=== PATIENT | female | born 1990 | race Caucasian/White ===

== ENCOUNTER 2018-05-06 22:19 | Emergency (ER) | payer SELFPAY ==
--- NOTE | 2018-05-06 23:34 | C.PDOC ---
History Of Present Illness Patient comes in complaining of left sided back pain since earlier today. She states the pain is worse with movement and denies any trauma or injury to the area. She also denies any weakness, numbness, dysuria, or hematuria. Patient denies any oral contraceptive use or being sexually active. Time Seen by Provider: 05/06/18 23:34 Chief Complaint (Nursing): Back Pain History Per: Patient History/Exam Limitations: no limitations Onset/Duration Of Symptoms: Hrs Current Symptoms Are (Timing): Still Present Quality Of Discomfort: "Pain" Severity: Mild Pain Scale Rating Of: 3 Associated Symptoms: denies: Incontinence, New Weakness, New Numbness Exacerbating Factor(s): Movement Recent travel outside of the [place]: No Additional History Per: Patient Past Medical History Reviewed: Historical Data, Nursing Documentation, Vital Signs Vital Signs: Last Vital Signs Temp 98.2 F 05/06/18 22:40 Pulse 70 05/06/18 22:40 Resp 20 05/06/18 22:40 BP 142/93 H 05/06/18 22:40 Pulse Ox 98 05/06/18 23:52 - Medical History PMH: No Chronic Diseases Surgical History: No Surg Hx Family History: States: No Known Family Hx - Social History Hx Alcohol Use: No Hx Substance Use: No Review Of Systems Constitutional: Negative for: Fever, Chills Cardiovascular: Negative for: Chest Pain Respiratory: Negative for: Shortness of Breath Genitourinary: Negative for: Dysuria, Hematuria Musculoskeletal: Positive for: Back Pain Neurological: Negative for: Weakness, Numbness Physical Exam - Physical Exam Appears: Non-toxic Skin: Warm, Dry Oral Mucosa: Moist Neck: Supple Chest: Symmetrical Cardiovascular: Rhythm Regular Respiratory: No Rales, No Rhonchi, No Wheezing Gastrointestinal/Abdominal: Soft, No Tenderness, No Distention, No Guarding, No Rebound Back: CVA Tenderness (left), No Vertebral Tenderness, No Straight Leg Raising Extremity: Normal ROM Neurological/Psych: Oriented x3 Gait: Steady ED Course And Treatment O2 Sat by Pulse Oximetry: 98 (RA) Pulse Ox Interpretation: Normal Progress Note: Urinalysis and urine HCG ordered. Disposition Counseled Patient/Family Regarding: Studies Performed, Diagnosis, Need For Followup - Disposition Referrals: [facility] [Outside] [facility] [Outside] Disposition: HOME/ ROUTINE Disposition Time: 23:34 Condition: FAIR Additional Instructions: Please return if symptoms recur Prescriptions: Naproxen [Naprosyn] 1 tab PO BID PRN #25 tab PRN Reason: Pain Nitrofurantoin Macrocrystals [Macrobid] 1 cap PO BID #14 cap Instructions: Urinary Tract Infection, Adult (DC) Forms: [employer] ([place]) - Clinical Impression Clinical Impression: Low back strain, UTI (urinary tract infection) - Scribe Statement The provider has reviewed the documentation as recorded by the Paul Curiel Provider Attestation: All medical record entries made by the Paul were at my direction and personally dictated by me. I have reviewed the chart and agree that the record accurately reflects my personal performance of the history, physical exam, medical decision making, and the department course for this patient. I have also personally directed, reviewed, and agree with the discharge instructions and disposition.
[2018-05-07 00:12] LABS: HCG,QUALITATIVE URINE NEGATIVE (NEGATIVE)
[2018-05-07 00:24] LABS: SQUAMOUS EPITHIAL 1 /hpf (0-5); URINE BACTERIA FEW (<OCC); URINE BILIRUBIN NEGATIVE (NEGATIVE); URINE BLOOD 1+ (NEGATIVE); URINE CLARITY Clear (Clear); URINE COLOR Straw (YELLOW); URINE GLUCOSE (UA) NORMAL (Normal); URINE PROTEIN NEGATIVE (NEGATIVE); URINE UROBILINOGEN NORMAL mg/dL (0.2-1.0)
[2018-05-07 00:26] LABS: URINE LEUKOCYTE ESTERASE 1+ Leu/uL (Negative)
[2018-05-07 00:58] VITALS: BP 128/88; PULSE 95; RESP 16; TEMP 98.4; O2SAT 100
== END 2018-05-07 00:57 | disposition home or self-care (01) ==
LOC: C.ER 22:19
DX: S39.012A Strain of muscle, fascia and tendon of lower back, initial encounter (principal); X58.XXXA Exposure to other specified factors, initial encounter; Y92.9 Unspecified place or not applicable; N39.0 Urinary tract infection, site not specified